=== PATIENT | female | born 1995 | race Hispanic/Latino ===

== ENCOUNTER 2022-08-18 17:31 | Emergency (ER) | payer MEDICARE ==
[~2022-08-18] VITALS: Ht 157.5 cm; Wt 97.5 kg
[2022-08-18] MEDS ORDERED: MECLIZINE HCL 12.5 MG TAB PO ONE (18:15)
[2022-08-18] MEDS ORDERED: MECLIZINE HCL12.5 MG PO (18:50)
== END 2022-08-18 19:04 | disposition home or self-care (01) ==
LOC: ER 17:47
DX: R42 Dizziness and giddiness (principal)
CPT/HCPCS: 36415; 82948; 93005; 99282; J8597